=== PATIENT | female | born 1955 | race African-American/Black ===

== ENCOUNTER 2020-08-28 07:32 | Inpatient (IN) | payer OTHER ==
[2020-08-28] MEDS ORDERED: ONDANSETRON 4 MG/2 ML VIAL IVPUSH ONE (08:55)
[2020-08-28 09:28] LABS: BASO % 0.4 % (0-2.0); EOS % 0.1 % (0-4.5); HEMATOCRIT 28.7 % (32.4-45.2); HEMOGLOBIN 8.9 GM/dL (10.7-15.3); LYMPH % 5.3 % (8-40); MCH 21.7 pg (25.7-33.7); MCHC 30.9 g/dl (32.0-36.0); MEAN CELL VOLUME 70.3 fl (80-96); MEAN PLT VOLUME 7.5 fl (7.5-11.1); MONO % 4.9 % (3.8-10.2); NEUT % 89.3 % (42.8-82.8); PLATELET COUNT 748 K/MM3 (134-434); RBC 4.09 M/mm3 (3.60-5.2); RDW 17.7 % (11.6-15.6); WHITE BLOOD COUNT 11.6 K/mm3 (4.0-10.0)
[2020-08-28 09:29] LABS: INR 1.29 (0.83-1.09); PROTHROMBIN TIME (PATIENT) 15.5 SEC (9.7-13.0)
[2020-08-28 09:32] LABS: ACTIVATED PTT 28.1 SECONDS (25.2-36.5)
[2020-08-28 09:36] LABS: CHLORIDE 105 mmol/L (98-107); POTASSIUM 5.3 mmol/L (3.5-5.1); SODIUM 137 mmol/L (136-145)
[2020-08-28 09:39] LABS: ALBUMIN 2.5 g/dl (3.4-5.0); ANION GAP 6 MMOL/L (8-16); CALCIUM 9.3 mg/dL (8.5-10.1); CO2 26 mmol/L (21-32); GLUCOSE,RANDOM 107 mg/dL (74-106)
[2020-08-28 09:40] LABS: BLOOD UREA NITROGEN 30.1 mg/dL (7-18)
[2020-08-28 09:42] LABS: CREATININE 2.7 mg/dL (0.55-1.3); SGOT/AST 30 U/L (15-37); SGPT/ALT 17 U/L (13-61)
[2020-08-28 09:43] LABS: BILIRUBIN,TOTAL 0.3 mg/dL (0.2-1)
[2020-08-28 09:44] LABS: TOT PROT 6.5 g/dl (6.4-8.2)
[2020-08-28 09:45] LABS: ALK PHOS 87 U/L (45-117)
[2020-08-28 09:48] LABS: N-TERMINAL BNP 207.7 pg/ml (5-125)
[2020-08-28 10:46] LABS: ANISOCYTOSIS 2+; MACROCYTOSIS 0; OVALOCYTE 0; PLATELET ESTIMATE INCREASED; ROULEAU 1+; TARGET CELLS 1+
[2020-08-28] MEDS ORDERED: FUROSEMIDE 40 MG/4 ML INJECTABLE VIAL IVPUSH ONE (13:48)
[2020-08-28] MEDS ORDERED: FUROSEMIDE 40 MG/4 ML INJECTABLE VIAL ONE (13:56)
[2020-08-28] MEDS: HEPARIN NA (PORCINE) 5,000 UNITS/ML 1ML VIAL SQ SCH (21:11)
[2020-08-29 08:02] LABS: POTASSIUM 4.7 mmol/L (3.5-5.1)
[2020-08-29 08:04] LABS: ALBUMIN 2.6 g/dl (3.4-5.0); BLOOD UREA NITROGEN 35.5 mg/dL (7-18); CALCIUM 9.3 mg/dL (8.5-10.1)
[2020-08-29 08:07] LABS: CREATININE 3.1 mg/dL (0.55-1.3)
[2020-08-29 08:09] LABS: BILIRUBIN,TOTAL 0.2 mg/dL (0.2-1); TOT PROT 6.4 g/dl (6.4-8.2)
[2020-08-29 08:19] LABS: HEMATOCRIT 29.5 % (32.4-45.2); MCH 21.8 pg (25.7-33.7); MCHC 30.6 g/dl (32.0-36.0); MEAN CELL VOLUME 71.2 fl (80-96); MEAN PLT VOLUME 7.7 fl (7.5-11.1); PLATELET COUNT 782 K/MM3 (134-434); RBC 4.15 M/mm3 (3.60-5.2); WHITE BLOOD COUNT 10.8 K/mm3 (4.0-10.0)
[2020-08-29] MEDS: ONDANSETRON 4 MG/2 ML VIAL IVPUSH PRN ×2 (08:21→14:45)
[2020-08-29] MEDS: amLODIPine BESYLATE 5 MG TABLET (FP) PO SCH (09:07)
[2020-08-29] MEDS: HEPARIN NA (PORCINE) 5,000 UNITS/ML 1ML VIAL SQ SCH ×2 (09:07→21:00)
[2020-08-29 10:08] LABS: EPI CELLS >36 /uL (0-25.1); HYALINE CASTS 16 /uL (0-3.1); URINE APPEARANCE TURBID; URINE BACTERIA 1349 /uL (0-1359); URINE BILIRUBIN NEGATIVE (NEGATIVE); URINE COLOR YELLOW; URINE GLUCOSE (UA) NEGATIVE (NEGATIVE); URINE KETONE NEGATIVE (NEGATIVE); URINE LEUK ESTERASE NEGATIVE (NEGATIVE); URINE NITRITE NEGATIVE (NEGATIVE); URINE PROTEIN 2+ (NEGATIVE); URINE RBC 10 /uL (0-23.9); URINE WBC 46 /uL (0-25.8)
[2020-08-29 11:12] LABS: CREATININE, URINE RANDOM > 300.0 mg/dL (30-150)
[2020-08-29] MEDS: PANTOPRAZOLE 40 MG TABLET PO SCH (13:37)
[2020-08-29] MEDS ORDERED: MAG HYDROX/AL HYDROX/SIMETH 30 ML UNIT-DOSE CUP PO ONE (17:45)
[2020-08-30 06:21] LABS: BASO % 0.7 % (0-2.0); EOS % 1.4 % (0-4.5); HEMATOCRIT 29.1 % (32.4-45.2); HEMOGLOBIN 8.9 GM/dL (10.7-15.3); LYMPH % 9.5 % (8-40); MCH 21.5 pg (25.7-33.7); MCHC 30.5 g/dl (32.0-36.0); MEAN CELL VOLUME 70.6 fl (80-96); MEAN PLT VOLUME 7.7 fl (7.5-11.1); MONO % 8.9 % (3.8-10.2); NEUT % 79.5 % (42.8-82.8); PLATELET COUNT 702 K/MM3 (134-434); RBC 4.12 M/mm3 (3.60-5.2); RDW 17.7 % (11.6-15.6); WHITE BLOOD COUNT 8.3 K/mm3 (4.0-10.0)
[2020-08-30 06:29] LABS: POTASSIUM 5.2 mmol/L (3.5-5.1)
[2020-08-30 06:32] LABS: CALCIUM 9.1 mg/dL (8.5-10.1)
[2020-08-30 06:33] LABS: ALBUMIN 2.4 g/dl (3.4-5.0); BLOOD UREA NITROGEN 34.6 mg/dL (7-18)
[2020-08-30 06:36] LABS: CREATININE 2.6 mg/dL (0.55-1.3)
[2020-08-30 06:38] LABS: TOT PROT 6.1 g/dl (6.4-8.2)
[2020-08-30 08:09] LABS: BILIRUBIN,TOTAL 0.2 mg/dL (0.2-1)
[2020-08-30] MEDS ORDERED: MAG HYDROX/AL HYDROX/SIMETH 30 ML UNIT-DOSE CUP PO ONE (08:40)
[2020-08-30] MEDS: amLODIPine BESYLATE 5 MG TABLET (FP) PO SCH (09:30)
[2020-08-30] MEDS: PANTOPRAZOLE 40 MG TABLET PO SCH (09:30)
[2020-08-30] MEDS: HEPARIN NA (PORCINE) 5,000 UNITS/ML 1ML VIAL SQ SCH ×2 (09:30→21:49)
[2020-08-30] MEDS: MORPHINE SULFATE 2 MG/ML VIAL IVPUSH PRN ×3 (11:25→21:50)
[2020-08-30] MEDS: SODIUM ZIRCONIUM CYCLOSILICATE (LOKELMA) 5 GM PACKET PO SCH (17:51)
[2020-08-31] MEDS: PANTOPRAZOLE 40 MG TABLET PO SCH (09:26)
[2020-08-31] MEDS: SODIUM ZIRCONIUM CYCLOSILICATE (LOKELMA) 5 GM PACKET PO SCH (09:26)
[2020-08-31] MEDS: amLODIPine BESYLATE 5 MG TABLET (FP) PO SCH (12:26)
[2020-08-31 12:50] LABS: BF WBC & OTHER NUCLEATED CELLS 893 /mm3
[2020-08-31 13:56] LABS: BODY FLUID BASOPHIL 1 %; BODY FLUID MACROPHAGES 35 %; BODY FLUID MESOTHELIAL 7 %; BODY FLUID MONOCYTE 2 %; BODYL FLD EOSINOPHIL 1 %
[2020-08-31] MEDS: MORPHINE SULFATE 2 MG/ML VIAL IVPUSH PRN ×2 (14:30→23:44)
[2020-09-01 07:33] LABS: POTASSIUM 5.2 mmol/L (3.5-5.1)
[2020-09-01 07:41] LABS: BLOOD UREA NITROGEN 27.4 mg/dL (7-18)
[2020-09-01 07:42] LABS: BILIRUBIN,TOTAL 0.2 mg/dL (0.2-1); CALCIUM 8.4 mg/dL (8.5-10.1); TOT PROT 5.2 g/dl (6.4-8.2)
[2020-09-01 07:44] LABS: CREATININE 1.8 mg/dL (0.55-1.3)
[2020-09-01] MEDS: MORPHINE SULFATE 2 MG/ML VIAL IVPUSH PRN ×3 (08:22→21:24)
[2020-09-01] MEDS ORDERED: PT OWN MED DRAWER 7, Y5N ONE (09:53)
[2020-09-01] MEDS: amLODIPine BESYLATE 5 MG TABLET (FP) PO SCH (09:59)
[2020-09-01] MEDS: PANTOPRAZOLE 40 MG TABLET PO SCH (09:59)
[2020-09-01] MEDS: SODIUM ZIRCONIUM CYCLOSILICATE (LOKELMA) 5 GM PACKET PO SCH (10:00)
[2020-09-01 13:07] LABS: BODY FLUID ALBUMIN 2.7 g/dL (Not Estab.)
[2020-09-01] MEDS: HEPARIN NA (PORCINE) 5,000 UNITS/ML 1ML VIAL SQ SCH ×2 (21:25→21:31)
[2020-09-02] MEDS: MORPHINE SULFATE 2 MG/ML VIAL IVPUSH PRN ×3 (06:12→15:11)
[2020-09-02 08:30] LABS: BASO % 0.4 % (0-2.0); EOS % 0.9 % (0-4.5); HEMATOCRIT 28.3 % (32.4-45.2); LYMPH % 8.5 % (8-40); MCH 22.3 pg (25.7-33.7); MCHC 31.7 g/dl (32.0-36.0); MEAN CELL VOLUME 70.2 fl (80-96); MEAN PLT VOLUME 7.7 fl (7.5-11.1); MONO % 7.9 % (3.8-10.2); NEUT % 82.3 % (42.8-82.8); PLATELET COUNT 473 K/MM3 (134-434); RBC 4.03 M/mm3 (3.60-5.2); RDW 17.9 % (11.6-15.6)
[2020-09-02 08:40] LABS: ALBUMIN 1.9 g/dl (3.4-5.0)
[2020-09-02 08:41] LABS: BLOOD UREA NITROGEN 26.6 mg/dL (7-18); CALCIUM 8.4 mg/dL (8.5-10.1)
[2020-09-02 08:43] LABS: CREATININE 1.8 mg/dL (0.55-1.3)
[2020-09-02 08:45] LABS: BILIRUBIN,TOTAL 0.3 mg/dL (0.2-1); TOT PROT 5.2 g/dl (6.4-8.2)
[2020-09-02] MEDS ORDERED: PT OWN MED DRAWER 7, Y5N ONE (08:52)
[2020-09-02] MEDS: PANTOPRAZOLE 40 MG TABLET PO SCH (09:05)
[2020-09-02] MEDS: HEPARIN NA (PORCINE) 5,000 UNITS/ML 1ML VIAL SQ SCH ×2 (09:05→22:03)
[2020-09-02] MEDS: amLODIPine BESYLATE 5 MG TABLET (FP) PO SCH (09:05)
[2020-09-02] MEDS: SODIUM ZIRCONIUM CYCLOSILICATE (LOKELMA) 5 GM PACKET PO SCH (09:12)
[2020-09-02] MEDS: POLYETHYLENE GLYCOL 3350 119 GM BTL PO SCH (15:25)
[2020-09-02] MEDS ORDERED: CEFTRIAXONE 1 GM in DEXTROSE 5%-WATER - 50 ML IVPB SCH (16:00)
[2020-09-02] MEDS ORDERED: cefTRIAXone SODIUM 1 GM VIAL ONE (16:24)
[2020-09-02] MEDS ORDERED: DEXTROSE 5%-WATER - 50 ML IVPB ONE (16:24)
[2020-09-03 07:14] LABS: POTASSIUM 4.9 mmol/L (3.5-5.1)
[2020-09-03 07:19] LABS: BLOOD UREA NITROGEN 24.1 mg/dL (7-18); CALCIUM 8.5 mg/dL (8.5-10.1)
[2020-09-03 07:23] LABS: CREATININE 1.4 mg/dL (0.55-1.3)
[2020-09-03] MEDS: POLYETHYLENE GLYCOL 3350 119 GM BTL PO SCH (10:00)
[2020-09-03] MEDS: PANTOPRAZOLE 40 MG TABLET PO SCH (10:00)
[2020-09-03] MEDS: SODIUM ZIRCONIUM CYCLOSILICATE (LOKELMA) 5 GM PACKET PO SCH (10:00)
[2020-09-03] MEDS: HEPARIN NA (PORCINE) 5,000 UNITS/ML 1ML VIAL SQ SCH ×3 (10:00→21:23)
[2020-09-03] MEDS: amLODIPine BESYLATE 5 MG TABLET (FP) PO SCH (10:00)
[2020-09-03] MEDS: MORPHINE SULFATE 2 MG/ML VIAL IVPUSH PRN (17:45)
[2020-09-04 07:02] LABS: POTASSIUM 4.8 mmol/L (3.5-5.1)
[2020-09-04 07:08] LABS: ALBUMIN 1.9 g/dl (3.4-5.0); BLOOD UREA NITROGEN 21.3 mg/dL (7-18); CALCIUM 8.6 mg/dL (8.5-10.1)
[2020-09-04 07:11] LABS: CREATININE 1.3 mg/dL (0.55-1.3)
[2020-09-04 07:12] LABS: BILIRUBIN,TOTAL 0.3 mg/dL (0.2-1); TOT PROT 5.4 g/dl (6.4-8.2)
[2020-09-04 07:29] VITALS: BP 136/53; PULSE 72; TEMP 98.2
[2020-09-04] MEDS ORDERED: PT OWN MED DRAWER 7, Y5N ONE (09:21)
[2020-09-04] MEDS: amLODIPine BESYLATE 5 MG TABLET (FP) PO SCH (09:27)
[2020-09-04] MEDS: PANTOPRAZOLE 40 MG TABLET PO SCH (09:27)
[2020-09-04] MEDS: HEPARIN NA (PORCINE) 5,000 UNITS/ML 1ML VIAL SQ SCH (09:28)
[2020-09-04] MEDS: MORPHINE SULFATE 2 MG/ML VIAL IVPUSH PRN (09:46)
[2020-09-04] MEDS: POLYETHYLENE GLYCOL 3350 119 GM BTL PO SCH (09:47)
[2020-09-04 11:43] VITALS: BMI 53.5
== END 2020-09-04 15:14 | disposition short-term general hospital (02) | DRG 518 ==
LOC: JER 07:32 → JERBED 10:03 → J7W 18:23
PROVIDERS: ADMIT Internal Medicine; ATTEND Internal Medicine
PROC: 0W9G3ZX Drainage of Peritoneal Cavity, Percutaneous Approach, Diagnostic (ICD-10-PCS; principal; 2020-08-31)
DX: C56.9 Malignant neoplasm of unspecified ovary (principal); I10 Essential (primary) hypertension; E66.01 Morbid (severe) obesity due to excess calories; Z68.43 Body mass index [BMI] 50.0-59.9, adult; N17.9 Acute kidney failure, unspecified; E87.5 Hyperkalemia; R18.8 Other ascites; J90 Pleural effusion, not elsewhere classified; K59.09 Other constipation
CPT/HCPCS: 36415; 71046-TC-FY; 71250-TC; 74176-TC; 76775-TC; 76830-TC; 76856-TC; 76942-TC; 80048; 80053; 81003; 82042; 82150; 82436; 82438; 82465; 82565; 82945; 83615; 83880; 83986; 84133; 84157; 84300; 84478; 84484; 85025; 85027; 85610; 85730; 86304; 87070; 87075; 87102; 87116; 87205; 87206; 87210; 88108; 88305-TC; 88341-TC; 93005; 93010; 97116-GP; 97161-GP; 99285-25; C9803; J1644; U0003